=== PATIENT | female | born 1995 | race Hispanic/Latino ===

== ENCOUNTER 2017-05-05 02:21 | Inpatient (IN) | payer OTHER, MEDICAID ==
[~2017-05-05] VITALS: Ht 165.1 cm; Wt 108.9 kg
[2017-05-05] MEDS ORDERED: LACTATED RINGERS 1000ML 1,000 ML IV PRN (02:55)
[2017-05-05 03:01] LABS: APPEARANCE,URINE Cloudy (CLEAR); BILIRUBIN,URINE Negative (NEGATIVE); COLOR,URINE Yellow (YELLOW); GLUCOSE, URINE (UA) Negative (NEGATIVE); KETONES,URINE Negative (NEGATIVE); LEUKOCYTE ESTERASE ,URINE Negative (NEGATIVE); NITRATE,URINE Negative (NEGATIVE); OCCULT BLOOD,URINE Small (NEGATIVE); PROTEIN,URINE POS 2+ (NEGATIVE)
[2017-05-05] MEDS ORDERED: OXYTOCIN 10 USP UNITS/ML 20 UNIT in LACTATED RINGERS 1000ML 1,000 ML IV SCH (03:15)
[2017-05-05 03:16] LABS: BACTERIA,URINE None Seen /HPF (None Seen); MUCUS,URINE Few LPF (None Seen); RBC,URINE 0-1 /HPF (0-1); SQUAMOUS EPITHELIAL CELL,UR Many /LPF (0-2); WBC,URINE 0-1 /HPF (0-1)
[2017-05-05] MEDS ORDERED: LACTATED RINGERS 1000ML 1,000 ML IV ONE ×2 (03:35→14:38)
[2017-05-05] MEDS ORDERED: OXYTOCIN 10 USP UNITS/ML ONE ×3 (03:35→16:18)
[2017-05-05 03:43] LABS: HEMATOCRIT 33.6 % (36-48); MEAN CORPUSCULAR HEMOGLOBIN 29.4 pg (27.0-33.0); MEAN CORPUSCULAR VOLUME 84.1 fL (79-99); NUCLEATED RED BLOOD CELLS 0.1 % (0.0-0.19); PLATELET COUNT (AUTO) 204 K/uL (130-400); RED BLOOD CELL COUNT(AUTO) 3.99 MIL/uL (4.00-5.50); RED CELL DISTRIBUTION WIDTH 14.3 % (11.0-15.5); WHITE BLOOD COUNT (AUTO) 9.2 K/uL (4.8-10.8)
[2017-05-05] MEDS ORDERED: BUTORPHANOL TARTRATE 2 MG/ML ONE (08:53)
[2017-05-05] MEDS ORDERED: BUTORPHANOL TARTRATE 2 MG/ML IVP SCH ×2 (09:00→13:45)
[2017-05-05] MEDS ORDERED: LIDOCAINE HCL 1% 20 ML VIAL ONE (14:44)
[2017-05-05] MEDS ORDERED: ACETAMINOPHEN 325 MG TAB PO PRN (15:15)
[2017-05-05] MEDS ORDERED: LANOLIN 30GM OINTMENT TP PRN (15:15)
[2017-05-05] MEDS ORDERED: MEASLES/MUMPS/RUBELLA VACCINE, LIVE 0.5 ML/VIAL SQ PRN (15:15)
[2017-05-05] MEDS ORDERED: WITCH HAZEL 1 PAD TP PRN (15:15)
[2017-05-05] MEDS ORDERED: DIPH,PERTUSS(ACELL),TET VAC/PF 0.5 ML VIAL IM PRN (15:15)
[2017-05-05 18:00] VITALS: BP 136/74
[2017-05-05 19:47] VITALS: BP 134/81
[2017-05-05] MEDS: DOCUSATE SODIUM 100 MG CAP PO SCH (22:09)
[2017-05-05] MEDS: BENZOCAINE/LANOLIN/ALOE VERA 60 ML AEROSOL TP PRN (22:10)
[2017-05-05] MEDS: IBUPROFEN 600 MG TABLET PO PRN (22:10)
[2017-05-05 23:31] VITALS: BP 109/49
[2017-05-06 03:18] VITALS: BP 116/54
[2017-05-06 06:58] LABS: HEMATOCRIT 28.7 % (36-48); MEAN CORPUSCULAR HEMOGLOBIN 28.9 pg (27.0-33.0); MEAN CORPUSCULAR HGB CONC 34.1 g/dL (32.0-36.0); MEAN CORPUSCULAR VOLUME 84.7 fL (79-99); PLATELET COUNT (AUTO) 176 K/uL (130-400); RED BLOOD CELL COUNT(AUTO) 3.39 MIL/uL (4.00-5.50); RED CELL DISTRIBUTION WIDTH 14.3 % (11.0-15.5); WHITE BLOOD COUNT (AUTO) 12.6 K/uL (4.8-10.8)
[2017-05-06 07:31] VITALS: BP 116/55
[2017-05-06] MEDS: BENZOCAINE/LANOLIN/ALOE VERA 60 ML AEROSOL TP PRN (08:38)
[2017-05-06] MEDS: DOCUSATE SODIUM 100 MG CAP PO SCH (08:38)
[2017-05-06] MEDS: IBUPROFEN 600 MG TABLET PO PRN (08:41)
[2017-05-06 10:08] LABS: HEPATITIS Bs ANTIGEN SCREEN P Negative (Negative)
[2017-05-06 11:33] VITALS: BP 113/67
[2017-05-06] MEDS ORDERED: MO6B PO (14:39)
== END 2017-05-06 15:40 | disposition home or self-care (01) | DRG 775 ==
LOC: EDH 02:21 → LDH 02:22 → OBSVTOIN 03:13 → WSH 17:49
PROVIDERS: ADMIT Obstetrics & Gynecology; ATTEND Obstetrics & Gynecology
PROC: 10E0XZZ Delivery of Products of Conception, External Approach (ICD-10-PCS; principal; 2017-05-05)
PROC: 0KQM0ZZ Repair Perineum Muscle, Open Approach (ICD-10-PCS; 2017-05-05)
DX: O70.1 Second degree perineal laceration during delivery (principal); Z37.0 Single live birth; Z28.21 Immunization not carried out because of patient refusal; Z3A.37 37 weeks gestation of pregnancy
CPT/HCPCS: 36415; 81001; 82120; 85027; 86592; 86850; 86900; 86901; 87340; J0595; J2590; J7120

== ENCOUNTER 2018-08-26 13:26 | Observation (INO) | payer MEDICAID, OTHER ==
[~2018-08-26 13:26] MED LIST: MO6B PO
[2018-08-26 14:19] LABS: APPEARANCE,URINE Clear (CLEAR); BILIRUBIN,URINE Negative (NEGATIVE); COLOR,URINE Yellow (YELLOW); GLUCOSE, URINE (UA) Negative (NEGATIVE); KETONES,URINE Negative (NEGATIVE); LEUKOCYTE ESTERASE ,URINE Small (NEGATIVE); NITRATE,URINE Negative (NEGATIVE); OCCULT BLOOD,URINE Negative (NEGATIVE); PH,URINE 7.5 (5.0-8.0); PROTEIN,URINE Negative (NEGATIVE)
[2018-08-26 14:39] LABS: BACTERIA,URINE Rare /HPF (None Seen); MUCUS,URINE Rare LPF (None Seen); RBC,URINE 0-1 /HPF (0-1); SQUAMOUS EPITHELIAL CELL,UR Few /HPF (0-2); TRANSITIONAL EPI CELLS,URINE Rare /HPF (None Seen)
[2018-08-26] MEDS ORDERED: LACTATED RINGERS 1000ML IV SCH (15:15)
[2018-08-26] MEDS ORDERED: LACTATED RINGERS 1000ML 1,000 ML IV SCH (16:00)
== END 2018-08-26 16:24 | disposition home or self-care (01) ==
LOC: EDH 13:26 → LDH 13:27
PROVIDERS: ADMIT Obstetrics & Gynecology; ATTEND Obstetrics & Gynecology
DX: O26.892 Other specified pregnancy related conditions, second trimester (principal); R10.31 Right lower quadrant pain; R19.7 Diarrhea, unspecified; Z3A.23 23 weeks gestation of pregnancy
CPT/HCPCS: 81001; 96360; 99284; G0378 ×3; J7120

== ENCOUNTER 2024-06-29 14:01 | Emergency (ER) | payer MEDICAID, OTHER ==
[~2024-06-29] VITALS: Ht 165.1 cm; Wt 117.9 kg
[~2024-06-29 14:01] MED LIST changes: +IBUP-2088 PO; -MO6B PO
--- NOTE | 2024-06-29 14:15 | ERN ---
ED Note History of Present Illness Stated Complaint: ABDOMINAL PAIN Chief Complaint: Abdominal Pain Time Seen by MD: 14:09 Dictation: PATIENT IS A 28-YEAR-OLD FEMALE HERE WITH A INTERMITTENT PAIN TO THE RIGHT UPPER QUADRANT WITH NAUSEA AT RADIATES TO HER BACK ONSET TWO WEEKS PRIOR TO ARRIVAL. SHE STATES IT IS WORSE WITH FOOD AND WHEN SHE EATS. STATES SHE HAS BEEN TO [facility] ON THREE DIFFERENT OCCASIONS LABS WERE DONE, SHE WAS TOLD THAT IT WAS GASTRITIS ONLY SHE STATES THEY HAS NOT DONE ANY IMAGING OF HER GALLBLADDER. Allergies: Coded Allergies: No Known Drug Allergies (Unverified Allergy, Unknown, 05/05/17) Home Meds Active Scripts Nitrofurantoin/Nitrofuran Mac (Macrobid) 100 Mg Cap, 1 CAP PO BID for 7 Days, #14 CAP 0 Refills Prov:ADDISON SALINAS OFFICE EQUIPMENT TECHNICIAN 06/29/24 Reported Medications Ibuprofen (Motrin/Advil) 600 Mg Tab, 600 MG PO Q8H PRN for PAIN LEVEL 1 TO 5, #20 TAB 0 Refills 05/06/17 Past Medical History History: Not Applicable RN Note Reviewed/Agreed w/PFSH: Yes Review of System Dictation CONSTITUTIONAL: NEGATIVE EXCEPT FOR HPI HEAD/FACE: NEGATIVE EXCEPT FOR HPI EENT: NEGATIVE EXCEPT FOR HPI RESPIRATORY: NEGATIVE EXCEPT FOR HPI GASTROINTESTINAL/ABDOMINAL: NEGATIVE EXCEPT FOR HPI RIGHT UPPER QUADRANT PAIN WITH NAUSEA TWO WEEKS GENITOURINARY: NEGATIVE EXCEPT FOR HPI MUSCULOSKELETAL: NEGATIVE EXCEPT FOR HPI INTEGUMENTARY: NEGATIVE EXCEPT FOR HPI NEUROLOGICAL/PSYCH: NEGATIVE EXCEPT FOR HPI HEMATOLOGIC/LYMPHATIC: NEGATIVE EXCEPT FOR HPI ALL SYSTEMS NEGATIVE, EXCEPT NOTED ABOVE. 13 POINT REVIEW OF SYSTEMS ASSESSED AND ALL NEGATIVE EXCEPT FOR ABOVE. Initial Vital Sign VS Vital Signs Date Time Temp Pulse Resp B/P (MAP) Pulse Ox O2 Delivery O2 Flow Rate FiO2 06/29/24 14:07 97.9 92 18 161/86 100 Room Air 0 06/29/24 14:45 21 Physical Exam Dictation VITAL SIGNS REVIEWED GENERAL APPEARANCE: ALERT, ORIENTED X 3, MONITOR ACUTE DISTRESS, WELL DEVELOPED, NOURISHED. HEAD AND FACE: NON-TRAUMATIC. EYES: PERRL, PINK CONJUNCTIVAS, EYELID NO TRAUMA, ANTERIOR CHAMBER WITH ARCUS SENILIS. EARS: PINNAS INTACT AND NO SIGNS OF TRAUMA OR ERYTHEMA EAR CANALS CLEAR AND NO DISCHARGE TM NO ERYTHEMA NOSE: NO DISCHARGE, NO BLEEDING. OROPHARYNX: MOUTH NORMAL, TONGUE PINK, PHARYNX CLEAR,NO ERYTHEMA, TONSILS NO EXUDATES, NO ABSCESSES NOTED, MUCOUS ME MBRANE MOIST NECK: SUPPLE, NON-TENDER, NO THYROMEGALY, NO MASSES, NO JVD, NO BRUITS BREAST:DEFERRED CHEST:NO TENDERNESS, NO CREPITUS, NO PARADOXICAL MOVEMENT, NO RETRACTIONS LUNGS:CLEAR, WELL-VENTILATED, SYMMETRIC, NO RALES, NO WHEEZING, NO RHONCHI, NO STRIDOR, GOOD BREATH SOUNDS BILATERALLY HEART: REGULAR RATE, REGULAR RHYTHM, NO MURMUR, NO GALLOPS VASCULAR: NO PERIPHERAL EDEMA, ABDOMEN: SOFT, POSITIVE BOWEL SOUNDS, NONDISTENDED, NO GUARDING, NONTENDER, NO REBOUND, NO MASSES NO HEPATOMEGALY, NO SPLENOMEGALY, POSITIVE PRUETT'S SIGN, NO HERNIAS. RECTAL: DEFERRED GENITAL: DEFERRED NEUROLOGICAL: NORMAL SPEECH, MOTOR FUNCTION INTACT, SENSORY FUNCTION INTACT MUSCULOSKELETAL: NECK NONTENDER, FULL RANGE OF MOTION, BACK NONTENDER, FULL RANGE OF MOTION, EXTREMITIES: NONTENDER, FULL RANGE OF MOTION SKIN: COLOR PINK, DRY, NO TURGOR, NO RASH, NO LACERATIONS, NO ABRASIONS, NO CONTUSIONS. LYMPHATIC: DEFERRED Results (Laboratory/Radiology) Laboratory/Radiology Laboratory Tests Test 06/29/24 14:34 06/29/24 14:42 Urine Color LIGHT-YELLOW (YELLOW) Urine Appearance CLEAR (CLEAR) Urine pH 6.5 (5.0-8.0) Urine Specific Pratt 1.010 (1.001-1.031) Urine Protein NEGATIVE mg/dL (NEGATIVE) Urine Glucose (UA) NEGATIVE mg/dL (NEGATIVE) Urine Ketones NEGATIVE mg/dL (NEGATIVE) Urine Occult Blood LARGE (NEGATIVE) H Urine Nitrate NEGATIVE (NEGATIVE) Urine Bilirubin NEGATIVE mg/dL (NEGATIVE) Urine Urobilinogen 0.2 mg/dL (0.2-1.0) Urine Leukocyte Esterase 250 Марина/uL (NEGATIVE) H Urine RBC 11-25 /HPF (0-1) H Urine WBC 11-25 /HPF (0-1) H Urine Squamous Epithelial Cells FEW /HPF (0-2) Urine Bacteria RARE /HPF (None Seen) Urine HCG, Qualitative NEGATIVE (NEGATIVE) White Blood Count 8.6 K/uL (4.8-10.8) Red Blood Count 4.57 MIL/uL (4.00-5.50) Hemoglobin 13.4 g/dL (12.0-16.0) Hematocrit 38.6 % (36-48) Mean Corpuscular Volume 84.5 fL (79-99) Mean Corpuscular Hemoglobin 29.3 pg (27.0-33.0) Mean Corpuscular Hemoglobin Concent 34.7 g/dL (32.0-36.0) Red Cell Distribution Width 12.0 % (11.0-15.5) Platelet Count 284 K/uL (130-400) Mean Platelet Volume 10.2 fL (7.5-10.5) Immature Granulocyte % (Auto) 0.3 % (0-1) Neutrophils (%) (Auto) 65.8 % (40.0-77.0) Lymphocytes (%) (Auto) 27.4 % (21.0-51.0) Monocytes (%) (Auto) 5.4 % (3.0-13.0) Eosinophils (%) (Auto) 0.6 % (0.0-8.0) Basophils (%) (Auto) 0.5 % (0.0-5.0) Neutrophils # (Auto) 5.7 K/uL (1.8-7.7) Lymphocytes # (Auto) 2.4 K/uL (1.0-4.8) Monocytes # (Auto) 0.5 K/uL (0.1-1.0) Eosinophils # (Auto) 0.05 K/uL (0.00-0.70) Basophils # (Auto) 0.04 K/uL (0.00-0.20) Absolute Immature Granulocyte (auto 0.03 K/uL (0-1) Nucleated Red Blood Cells 0.0 % (0.0-0.19) Sodium Level 138 mmol/L (136-145) Potassium Level 3.6 mmol/L (3.5-5.1) Chloride Level 101 mmol/L (101-111) Carbon Dioxide Level 26 mmol/L (21-32) Blood Urea Nitrogen 10 mg/dL (7-18) Creatinine 0.8 mg/dL (0.5-1.0) Glomerular Filtration Rate Calc 102 mL/min (>90) Random Glucose 80 mg/dL (70-105) Total Calcium 9.0 mg/dL (8.5-10.1) Lipase 31 U/L (16-77) 1600/RIGHT UPPER QUADRANT ULTRASOUND NEGATIVE PATIENT STATES PAIN IMPROVED 1610/WISHED TO BE DISCHARGED HOME Labs Reviewed?: Yes ED Course ED Course Orders Procedure Category Date Status Time Cbc With Differential LAB 06/29/24 Complete 14:13 ,Urine Test LAB 06/29/24 Complete 14:13 Urinalysis Profile LAB 06/29/24 Complete 14:13 Us Abdominal Ruq\Ltd US 06/29/24 Resulted 14:13 0.9%Nacl 1000ml (Ns PHA 06/29/24 Complete 1000ml) 14:30 Ketorolac PHA 06/29/24 Complete Tromethamine 30mg/Ml 14:30 Ondansetron 4mg Inj PHA 06/29/24 Complete (Zofran 4mg Inj) 14:30 Lipase LAB 06/29/24 Complete 14:13 Basic Metabolic Panel LAB 06/29/24 Complete 14:13 Culture Urine WENDY 06/29/24 In Process 14:48 Ceftriaxone 1g Vial PHA 06/29/24 Complete (Rocephine 1g Inj) 16:00 Current Medications Medications (Trade) Dose Ordered Sig/Magaly Route PRN Reason Start Time Stop Time Status Last Admin Dose Admin Ceftriaxone Sodium (ROCEphine 1G INJ) 1 gm ONCE ONCE IVP 06/29/24 16:00 06/29/24 16:01 DC 06/29/24 15:46 Ketorolac Tromethamine (toRADol) 30 mg ONCE ONCE IVP 06/29/24 14:30 06/29/24 14:31 DC 06/29/24 15:42 Ondansetron HCl (zoFRAN 4MG INJ) 4 mg ONCE ONCE IVP 06/29/24 14:30 06/29/24 14:31 DC 06/29/24 15:41 Sodium Chloride 1,000 ml @ 0 mls/hr ONCE ONCE IV 06/29/24 14:30 06/29/24 14:31 DC 06/29/24 15:41 Vital Signs Date Time Temp Pulse Resp B/P (MAP) Pulse Ox O2 Delivery O2 Flow Rate FiO2 06/29/24 16:16 98.2 64 16 117/73 98 Room Air* 0 21 06/29/24 14:45 98.2 74 16 142/63 98 Room Air* 0 21 06/29/24 14:07 97.9 92 18 161/86 100 Room Air 0 Medical Decision Making MDM MEDICAL DISCHARGE MAKING BASED ON ABDOMINAL LABS TO INCLUDE URINE AND ULTRASOUND RIGHT UPPER QUADRANT DUE TO COLICKY RIGHT UPPER QUADRANT PAIN WORSE AFTER FOOD. ULTRASOUND NEGATIVE PATIENT ALSO STATES SHE HAD A CT AT [facility] AND WAS NEGATIVE FOR KIDNEY STONES. DISCHARGED HOME WITH A ACUTE GASTRITIS MACROBID FOR HER URINARY TRACT INFECTION GIVEN EXTENSIVE INFORMATION ON DIETARY GUIDELINES FOR BLAND DIET WATER FOR FLUIDS ONLY FOLLOW UP WITH DR. SEMAJ DUNN DX & DISP Disposition: Discharge Departure Impression: Primary Impression: Acute gastritis Additional Impression: Acute cystitis with hematuria Condition: Stable Scripts Nitrofurantoin/Nitrofuran Mac (Macrobid) 100 Mg Cap 1 CAP PO BID for 7 Days, #14 CAP 0 Refills Prov: ADDISON SALINAS OFFICE EQUIPMENT TECHNICIAN 06/29/24 Additional Instructions: FOLLOW-UP WITH PRIMARY CARE PROVIDER IN 1 TO 2 DAYS. TAKE MEDICATIONS DIRECTED HERE IN THE EMERGENCY ROOM. OKAY TO CONTINUE HOME MEDICATIONS UNLESS OTHERWISE DISCUSSED DURING YOUR VISIT IN THE EMERGENCY ROOM TODAY. RETURN TO YOUR NEAREST EMERGENCY ROOM IF SYMPTOMS WORSEN OR IF THERE IS NO IMPROVEMENT. CALL 911 IF YOU NEED IMMEDIATE ASSISTANCE. TAKE TYLENOL OR MOTRIN OV [id number] NEEDED AND IF NO CONTRAINDICATIONS ARE PRESENT. INCREASE ORAL HYDRATION. A WOUND CULTURE OR URINE CULTURE WAS ORDERED HERE IN THE EMERGENCY ROOM DEPARTMENT PLEASE FOLLOW-UP WITH PRIMARY CARE PROVIDER AND ADVISE THEM TO GET REPEAT PORTS FROM OUR FACILITY. IF YOU HAD ANY ROSALBA WRAP/SPLINTS THAT WERE APPLIED HERE, PLEASE DO NOT REMOVE THEM UNTIL YOU SEE YOUR PRIMARY CARE OR SPECIALTY. CONTINUE CARAFATE AND PANTOPRAZOLE FROM YOUR [facility] VISIT. TAKE MACROBID DIRECTED UNTIL GONE. FOLLOW A BLAND DIET WITH WATER FOR FLUIDS ONLY. NO CITRIC ACID FRUIT JUICE, NO SODA POP, NO ICE TEA, NO COFFEE NO SPICY FOODS UN TIL CLEARED BY GASTROENTEROLOGY, CALL FOR AN APPOINTMENT TOMORROW. Referrals: CRISTIAN VEGA Jr., MD (PCP) BETO DUNN MD Time of Disposition: 16:11 I have reviewed the case, and I agree with, Diagnosis and Plan I performed the substantive portion of the visit. I have reviewed and personally made and approve the management plan that is documented in the notes by myself or the JUAN DAVID. I acknowledge full responsibility for the patient's management plan. ADDISON SALINAS NP Jun 29, 2024 14:15 ESTEBAN ALEMAN MD Jun 29, 2024 19:19
[2024-06-29 14:46] LABS: APPEARANCE,URINE CLEAR (CLEAR); BILIRUBIN,URINE NEGATIVE (NEGATIVE); COLOR,URINE LIGHT-YELLOW (YELLOW); GLUCOSE, URINE (UA) NEGATIVE (NEGATIVE); KETONES,URINE NEGATIVE (NEGATIVE); LEUKOCYTE ESTERASE ,URINE 250 Leu/uL (NEGATIVE); NITRATE,URINE NEGATIVE (NEGATIVE); OCCULT BLOOD,URINE LARGE (NEGATIVE); PH,URINE 6.5 (5.0-8.0); PROTEIN,URINE NEGATIVE (NEGATIVE); UROBILINOGEN,URINE 0.2 mg/dL (0.2-1.0)
[2024-06-29 14:47] LABS: ADD UA MICROSCOPIC YES
[2024-06-29 14:49] LABS: HCG,QUALITATIVE URINE NEGATIVE (NEGATIVE)
[2024-06-29 14:53] LABS: BASOPHILS # (AUTO) 0.04 K/uL (0.00-0.20); BASOPHILS % (AUTO) 0.5 % (0.0-5.0); EOSINOPHILS # (AUTO) 0.05 K/uL (0.00-0.70); EOSINOPHILS % (AUTO) 0.6 % (0.0-8.0); HEMATOCRIT 38.6 % (36-48); IMMATURE GRANULOCYTE ABSOLUTE 0.03 K/uL (0-1); LYMPHOCYTES # (AUTO) 2.4 K/uL (1.0-4.8); LYMPHOCYTES % (AUTO) 27.4 % (21.0-51.0); MEAN CORPUSCULAR HEMOGLOBIN 29.3 pg (27.0-33.0); MEAN CORPUSCULAR HGB CONC 34.7 g/dL (32.0-36.0); MEAN CORPUSCULAR VOLUME 84.5 fL (79-99); MONOCYTES # (AUTO) 0.5 K/uL (0.1-1.0); MONOCYTES % (AUTO) 5.4 % (3.0-13.0); NEUTROPHILS # (AUTO) 5.7 K/uL (1.8-7.7); NEUTROPHILS % (AUTO) 65.8 % (40.0-77.0); PLATELET COUNT (AUTO) 284 K/uL (130-400); RED BLOOD CELL COUNT(AUTO) 4.57 MIL/uL (4.00-5.50); WHITE BLOOD COUNT (AUTO) 8.6 K/uL (4.8-10.8)
--- NOTE | 2024-06-29 14:58 | NUR ---
WENT IN ROOM TO CHECK ON PT NOT IN ROOM AT THIS TIME POSSIBLY IN US HOWEVER FAMILY NOT IN ROOM OR ER LOBBY
[2024-06-29 15:05] LABS: CREATININE 0.8 mg/dL (0.5-1.0); POTASSIUM 3.6 mmol/L (3.5-5.1)
[2024-06-29 15:11] LABS: BACTERIA,URINE RARE /HPF (None Seen); MUCUS,URINE RARE LPF (None Seen); SQUAMOUS EPITHELIAL CELL,UR FEW /HPF (0-2)
[2024-06-29] MEDS: ondanSETRON 4MG INJ IVP ONE (15:41)
[2024-06-29] MEDS: 0.9%NACL 1000ML 1,000 ML IV ONE (15:41)
[2024-06-29] MEDS: ketOROlac 30MG VIAL (30MG/ML) IVP ONE (15:42)
[2024-06-29] MEDS: cefTRIAXone 1G VIAL IVP ONE (15:46)
--- NOTE | 2024-06-29 16:01 | HMCIMG ---
Exam Type: US ABDOMINAL RUQ\E\LTD Clinical Information: Adominal Pain Comparison: None Findings: The liver shows normal echogenicity and is otherwise unremarkable. The liver measures less than 16 cm in length. Doppler evaluation shows patent portal and hepatic veins. The gallbladder shows no significant abnormalities. Specifically, no calculi are seen. The gallbladder wall thickness is 1 mm. No bile duct dilatation is noted. The common bile duct measures 4 mm. The right kidney measures 9.8 x 4.7 cm. The right kidney is normal in size and echogenicity. No hydronephrosis or renal calculi are seen. There are no renal masses. The pancreas is unremarkable. IMPRESSION: Normal right upper quadrant abdominal ultrasound.
[2024-06-29] MEDS ORDERED: MACR100 PO (16:13)
[2024-06-29 16:16] VITALS: BP 117/73; PULSE 64; RESP 16; TEMP 98.3; O2SAT 98
== END 2024-06-29 16:28 | disposition home or self-care (01) ==
LOC: EDH 14:01
DX: K29.00 Acute gastritis without bleeding (principal); N30.01 Acute cystitis with hematuria
CPT/HCPCS: 99285; 96374; 76705; 96375; 80048; 83690; 85025; 87086; 81001; 81025; 36415; J1885; J7030; J0696; J2405

== ENCOUNTER 2024-07-15 19:34 | Emergency (ER) | payer OTHER ==
[~2024-07-15] VITALS: Ht 165.1 cm; Wt 117.0 kg
[~2024-07-15 19:34] MED LIST changes: +MACR100 PO
[2024-07-15 20:13] LABS: APPEARANCE,URINE CLEAR (CLEAR); BILIRUBIN,URINE NEGATIVE (NEGATIVE); COLOR,URINE COLORLESS (YELLOW); GLUCOSE, URINE (UA) NEGATIVE (NEGATIVE); KETONES,URINE NEGATIVE (NEGATIVE); LEUKOCYTE ESTERASE ,URINE NEGATIVE Leu/uL (NEGATIVE); NITRATE,URINE NEGATIVE (NEGATIVE); OCCULT BLOOD,URINE NEGATIVE (NEGATIVE); PROTEIN,URINE NEGATIVE (NEGATIVE); UROBILINOGEN,URINE 0.2 mg/dL (0.2-1.0)
[2024-07-15 20:19] LABS: ADD UA MICROSCOPIC NO
[2024-07-15 20:24] VITALS: BP 125/74; PULSE 74; RESP 18; TEMP 98.2; O2SAT 98
[2024-07-15 20:41] LABS: BASOPHILS # (AUTO) 0.03 K/uL (0.00-0.20); BASOPHILS % (AUTO) 0.3 % (0.0-5.0); EOSINOPHILS # (AUTO) 0.15 K/uL (0.00-0.70); EOSINOPHILS % (AUTO) 1.7 % (0.0-8.0); HEMATOCRIT 38.6 % (36-48); IMMATURE GRANULOCYTE ABSOLUTE 0.01 K/uL (0-1); LYMPHOCYTES # (AUTO) 2.4 K/uL (1.0-4.8); LYMPHOCYTES % (AUTO) 27.7 % (21.0-51.0); MEAN CORPUSCULAR HEMOGLOBIN 29.4 pg (27.0-33.0); MEAN CORPUSCULAR HGB CONC 34.5 g/dL (32.0-36.0); MEAN CORPUSCULAR VOLUME 85.4 fL (79-99); MONOCYTES # (AUTO) 0.4 K/uL (0.1-1.0); MONOCYTES % (AUTO) 4.6 % (3.0-13.0); NEUTROPHILS # (AUTO) 5.7 K/uL (1.8-7.7); NEUTROPHILS % (AUTO) 65.6 % (40.0-77.0); PLATELET COUNT (AUTO) 242 K/uL (130-400); RED BLOOD CELL COUNT(AUTO) 4.52 MIL/uL (4.00-5.50); RED CELL DISTRIBUTION WIDTH 12.7 % (11.0-15.5); WHITE BLOOD COUNT (AUTO) 8.7 K/uL (4.8-10.8)
--- NOTE | 2024-07-15 20:44 | ERN ---
General Chief Complaint: Pelvic Pain Stated Complaint: C/O LOWER PELVIC PAIN Time Seen by MD: 19:36 Time Seen by Midlevel: 19:36 Source: patient History of Present Illness Initial Comments 28-year-old female who presents to the emergency department due to pelvic pain onset prior to arrival. She states pain initiated after having a bowel moveme nt. Patient denies any fever, dysuria, vomiting or further associated symptoms. Denies possibility of LMP 06/23/24. Denies significant past medical history. Allergies: Coded Allergies: No Known Drug Allergies (Unverified Allergy, Unknown, 05/05/17) Home Meds Active Scripts Nitrofurantoin/Nitrofuran Mac (Macrobid) 100 Mg Cap, 1 CAP PO BID for 7 Days, #14 CAP 0 Refills Prov:ADDISON SALINAS CARBONIZER TESTER 06/29/24 Reported Medications Ibuprofen (Motrin/Advil) 600 Mg Tab, 600 MG PO Q8H PRN for PAIN LEVEL 1 TO 5, #20 TAB 0 Refills 05/06/17 Past Medical History Past Medical History: No Pertinent History Past Surgical History: None Female( History) History: Not Applicable LMP: Jun 23, 2024 ROS Dictation Constitutional: Negative for fever,chills, and weight loss Eyes: Negative for injury, pain,redness, and discharge ENT: Negative for injury,pain or swelling Cardiovascular: Negative for chest pain, palpitations, and edema Respiratory: Negative for shortness of breath, cough, and wheezing, Abdomen/GI: Positive for pelvic pain Negative for abdominal pain, nausea, vomiting, diarrhea, and constipation Back: Negative for injury and pain : Negative for painful urination, bleeding or discharge MS/Extremity: Negative for injury and deformity Skin: Negative for rash, and discoloration Neuro: Negative for headache, weakness, numbness, tingling, and seizure Psych: Negative for suicide ideation, homicidal ideation, and hallucinations Physical Exam Physical Exam Dictation General: awake, alert, no acute distress Head/Face: Normocephalic, atraumatic Eyes: PERRL, EOMI, normal conjunctiva ENT: oral cavity clear, oral mucosa moist Neck: Supple, normal range of motion Cardiovascular: RRR, normal S1/S2 Respiratory: CTAB, no respiratory distress, no rales or wheezes Abdomen: Soft, mild suprapubic tenderness, non-distended, no guarding or rebound. Skin: Warm, dry, normal turgor, no rash MS/Extremity: Pulses equal, no cyanosis, neurovascular intact, FROM Neuro: COAx4, GCS 15, strength 5/5, CN 2-12 intact, normal cerebellar exam, normal gait Psych: Normal behavior, mood, and affect normal Results Laboratory and Microbiology Lab and Micro Result Laboratory Tests Test 07/15/24 19:40 07/15/24 20:33 Urine Color COLORLESS (YELLOW) Urine Appearance CLEAR (CLEAR) Urine pH 6.0 (5.0-8.0) Urine Specific Pilger 1.005 (1.001-1.031) Urine Protein NEGATIVE mg/dL (NEGATIVE) Urine Glucose (UA) NEGATIVE mg/dL (NEGATIVE) Urine Ketones NEGATIVE mg/dL (NEGATIVE) Urine Occult Blood NEGATIVE (NEGATIVE) Urine Nitrate NEGATIVE (NEGATIVE) Urine Bilirubin NEGATIVE mg/dL (NEGATIVE) Urine Urobilinogen 0.2 mg/dL (0.2-1.0) Urine Leukocyte Esterase NEGATIVE Марина/uL Urine HCG, Qualitative NEGATIVE (NEGATIVE) White Blood Count 8.7 K/uL (4.8-10.8) Red Blood Count 4.52 MIL/uL (4.00-5.50) Hemoglobin 13.3 g/dL (12.0-16.0) Hematocrit 38.6 % (36-48) Mean Corpuscular Volume 85.4 fL (79-99) Mean Corpuscular Hemoglobin 29.4 pg (27.0-33.0) Mean Corpuscular Hemoglobin Concent 34.5 g/dL (32.0-36.0) Red Cell Distribution Width 12.7 % (11.0-15.5) Platelet Count 242 K/uL (130-400) Mean Platelet Volume 11.1 fL (7.5-10.5) H Immature Granulocyte % (Auto) 0.1 % (0-1) Neutrophils (%) (Auto) 65.6 % (40.0-77.0) Lymphocytes (%) (Auto) 27.7 % (21.0-51.0) Monocytes (%) (Auto) 4.6 % (3.0-13.0) Eosinophils (%) (Auto) 1.7 % (0.0-8.0) Basophils (%) (Auto) 0.3 % (0.0-5.0) Neutrophils # (Auto) 5.7 K/uL (1.8-7.7) Lymphocytes # (Auto) 2.4 K/uL (1.0-4.8) Monocytes # (Auto) 0.4 K/uL (0.1-1.0) Eosinophils # (Auto) 0.15 K/uL (0.00-0.70) Basophils # (Auto) 0.03 K/uL (0.00-0.20) Absolute Immature Granulocyte (auto 0.01 K/uL (0-1) Nucleated Red Blood Cells 0.0 % (0.0-0.19) Sodium Level 138 mmol/L (136-145) Potassium Level 3.6 mmol/L (3.5-5.1) Chloride Level 103 mmol/L (101-111) Carbon Dioxide Level 27 mmol/L (21-32) Blood Urea Nitrogen 10 mg/dL (7-18) Creatinine 0.8 mg/dL (0.5-1.0) Glomerular Filtration Rate Calc 102 mL/min (>90) Random Glucose 93 mg/dL (70-105) Total Calcium 9.0 mg/dL (8.5-10.1) MDM MDM: Differential diagnosis: Menstrual pain, UTI, pelvic inflammatory disease, ovulation pain Rationale: Tests considered and ordered secondary to shared decision making include: Previous outside records reviewed: Old ER visits. Risk of complication and/or morbidity or mortality of patient management: None Medications-Per medication reconciliation Need for hospitalization: Patient does not meet criteria for hospitalization. Need for emergency major/minor surgery: No There are no social concerns with this patient. Prescription drug management Prescriptions will include symptomatic care Patient's prior external medical records from other ER visits were reviewed by me as indicated. Prior testing and results from previous visits were reviewed. Prior tests were taken into account with medical decision making and resource utilization, independent historian/historians were used to obtain complete medical history. I independently interpreted the test that were performed, results were reviewed by me and considered findings on radiology if ordered. Medical management and examination interpretation discussions were had by me with other qualified healthcare professionals as indicated for the patient's c are. ED Course Orders Procedure Category Date Status Time Urinalysis Profile LAB 07/15/24 Complete 19:47 ,Urine Test LAB 07/15/24 Complete 19:47 Cbc With Differential LAB 07/15/24 Complete 19:58 Basic Metabolic Panel LAB 07/15/24 Complete 19:58 Us Pelvic Non-Ob Comp US 07/15/24 Resulted 20:37 Acetaminophen 500mg PHA 07/15/24 Complete Tab (Tylenol 500mg T 21:00 Ct Abdomen/Pelvis CT 07/15/24 Resulted W/Contrast 21:28 Iohexol (Omnipaque) PHA 07/15/24 Complete 21:42 Current Medications Medications (Trade) Dose Ordered Sig/Magaly Route PRN Reason Start Time Stop Time Status Last Admin Dose Admin Acetaminophen (TYLenol 500MG TAB) 1,000 mg ONCE ONCE PO 07/15/24 21:00 07/15/24 21:01 DC 07/15/24 21:03 Iohexol (Omnipaque) 35,000 mg STK-MED ONCE IV 07/15/24 21:42 07/15/24 21:42 DC Vital Signs Date Time Temp Pulse Resp B/P (MAP) Pulse Ox O2 Delivery O2 Flow Rate FiO2 07/15/24 20:24 98.2 74 18 125/74 98 Room Air* 0 21 07/15/24 19:35 98.2 98 20 128/78 99 Room Air 10:38 p.m. I independently re-evaluated the patient reviewed all the data and examined the patient . Pelvic ultrasound was essentially with a normal limits CT scan of the abdomen and pelvis-no intra-abdominal or intrapelvic pathology. Recommend discharge to home to follow up with her primary care physician Problem List Problem Lists: (1) Ovulation pain (2) Pelvic pain (3) Tenesmus (rectal) DX & DISP Disposition: Discharge Departure Impression: Primary Impression: Pelvic pain Additional Impressions: Ovulation pain, Tenesmus (rectal) Condition: Stable Additional Instructions: Patient and the caregiver have been informed of all the diagnostic tests and the imaging conducted during the today's visit to the emergency room and has verbalized understanding of the results I have personally reviewed and interpreted all diagnostic exams performed here in the ER today as well as the vital signs documented by the nursing staff. The patient is now being discharged to home and should follow up with the primary care physician or the specialist as directed by the ER staff. Follow-up with primary care provider in 1 to 2 days. Take medications as directed here in the emergency room. Okay to continue home medications unless otherwise discussed during your visit in the emergency room today. Return to your nearest emergency room if symptoms worsen or if there is no improvement. Call 911 if you need immediate assistance. Take Tylenol or Motrin [id number] as needed and if no contraindications are present. Increase oral hydration. A wound culture or urine culture was ordered here in the emergency room department please follow-up with primary care provider and advise them to get repeat ports from our facility. If you had any Hayden wrap/splints that were applied here, please do not remove them until you see your primary care or specialty. Referrals: CRISTIAN VEGA Jr., MD (PCP) MONICA MUNROE Jul 15, 2024 20:44 LUCINDA ALLISON MD Jul 15, 2024 22:40
[2024-07-15 20:54] LABS: CREATININE 0.8 mg/dL (0.5-1.0); POTASSIUM 3.6 mmol/L (3.5-5.1)
[2024-07-15] MEDS: acetaMINOPHEN 500 MG TABLET PO ONE (21:03)
--- NOTE | 2024-07-15 21:35 | HMCIMG ---
Exam Type: US PELVIC NON-OB COMP Clinical Information: Pain Comparison: None Findings: The examination shows an anteverted uterus which is normal in size and echogenicity. It measures 8.4 x 3.9 x 6 cm. The endometrial lining is normal in thickness. It measures 8 mm. No intrauterine or ectopic seen. The ovaries are normal in size and echogenicity. The right ovary measures 2.7 x 1.9 x 2.1 cm. The left ovary measures 3.2 x 1.4 x 1.9 cm. Multiple left ovarian follicles, largest one 12 x 18 mm. Vascular Doppler flow exam and spectral analysis of waveforms analysis is unremarkable bilaterally. There is preserved vascularity to both ovaries on Doppler evaluation. Specifically, there is no evidence of ovarian torsion. No free fluid is noted throughout the cul-de-sac. There are no adnexal abnormalities. No other significant abnormalities are seen. No fluid collections or masses or free fluid are identified in the pelvis. Impression: NORMAL EXAM. No evidence of uterine pathology. No evidence of adnexal abnormalities or ovarian torsion. No intrauterine or ectopic seen. Left ovarian follicles visualized.
[2024-07-15] MEDS ORDERED: IOHEXOL 350 MG/ML 100ML INFUS..BTL IV ONE (21:42)
--- NOTE | 2024-07-15 22:11 | HMCIMG ---
CT ABDOMEN/PELVIS W/CONTRAST HISTORY: Abdominal pain COMPARISON: None TECHNIQUE: Multiple sequential axial images of the abdomen and pelvis were obtained from the dome of the diaphragm through symphysis pubis. Patient was given 100 cc of Omnipaque through intravenous route. Oral contrast was not given. FINDINGS: No pleural effusion is seen bilaterally. 4 mm left lower lobe pulmonary nodularity is seen. Degenerative changes of the thoracolumbar spine are present. The heart is not enlarged. Gallbladder is contracted. Liver measures 15 cm. The liver, spleen, adrenal glands and pancreas are unremarkable. There is no evidence of hydronephrosis bilaterally. No evidence of renal stone is seen. Fecal material is seen in the colon. There are normal size retroperitoneal and mesenteric lymph nodes. No ascites is seen. No CT evidence of acute appendicitis is seen. Clinical correlation is recommended. Pelvic sidewalls are symmetric bilaterally. The bladder is poorly distended. IMPRESSION: 1. No acute findings. CT was performed with one or more following dose reduction techniques: automated exposure control, adjustment of the mA and kv according to patient's size, or use of a iterative reconstruction technique.
== END 2024-07-15 23:42 | disposition home or self-care (01) ==
LOC: EDH 19:34
DX: R10.2 Pelvic and perineal pain (principal); N94.0 Mittelschmerz; R19.8 Other specified symptoms and signs involving the digestive system and abdomen
CPT/HCPCS: 36415; 74177; 76856; 80048; 81003; 81025; 85025; 99285; Q9967

== ENCOUNTER 2024-07-30 13:52 | Emergency (ER) | payer OTHER ==
[~2024-07-30] VITALS: Ht 165.1 cm; Wt 113.4 kg
[2024-07-30 13:53] VITALS: BP 156/80; PULSE 84; RESP 16; TEMP 98
[2024-07-30 14:20] LABS: BASOPHILS # (AUTO) 0.03 K/uL (0.00-0.20); BASOPHILS % (AUTO) 0.4 % (0.0-5.0); EOSINOPHILS # (AUTO) 0.15 K/uL (0.00-0.70); EOSINOPHILS % (AUTO) 2.2 % (0.0-8.0); HEMATOCRIT 38.3 % (36-48); IMMATURE GRANULOCYTE ABSOLUTE 0.02 K/uL (0-1); LYMPHOCYTES # (AUTO) 1.8 K/uL (1.0-4.8); LYMPHOCYTES % (AUTO) 26.8 % (21.0-51.0); MEAN CORPUSCULAR HEMOGLOBIN 29.4 pg (27.0-33.0); MEAN CORPUSCULAR HGB CONC 34.7 g/dL (32.0-36.0); MEAN CORPUSCULAR VOLUME 84.5 fL (79-99); MONOCYTES # (AUTO) 0.3 K/uL (0.1-1.0); MONOCYTES % (AUTO) 4.9 % (3.0-13.0); NEUTROPHILS # (AUTO) 4.4 K/uL (1.8-7.7); NEUTROPHILS % (AUTO) 65.4 % (40.0-77.0); PLATELET COUNT (AUTO) 243 K/uL (130-400); RED BLOOD CELL COUNT(AUTO) 4.53 MIL/uL (4.00-5.50); RED CELL DISTRIBUTION WIDTH 12.7 % (11.0-15.5); WHITE BLOOD COUNT (AUTO) 6.8 K/uL (4.8-10.8)
[2024-07-30 14:36] LABS: CREATININE 0.9 mg/dL (0.5-1.0); POTASSIUM 3.5 mmol/L (3.5-5.1)
[2024-07-30 14:52] LABS: B-TYPE NATRIURETIC PEPTIDE 12 pg/mL (0-100)
--- NOTE | 2024-07-30 15:12 | HMCIMG ---
Exam Type: CHEST 1VW Clinical Information: CHEST PAIN Comparison: None Findings: The lungs are clear of infiltrates. The heart is normal in size. The bony and soft tissue structures of the chest are unremarkable. Impression: Clear lungs.
--- NOTE | 2024-07-30 15:52 | ERN ---
General Chief Complaint: Chest Pain Stated Complaint: CHEST PAIN Time Seen by MD: 13:53 Source: patient History of Present Illness Initial Comments PATIENT IS A 28-YEAR-OLD FEMALE COMING IN WITH CHEST PRESSURE. PATIENT STATES THAT THIS HAS BEEN ONGOING FOR A WEEK. PREVIOUS TO THIS SHE HAS HAD SIMILAR EPISODES WAS DIAGNOSED WITH A HIATAL HERNIA AND GASTRITIS. PATIENT HAS BEEN TAKING HER PROTONIX ON AND OFF FOR THREE WEEKS. aLONG WITH THIS PATIENT STATES THAT SHE TAKES SUCRALFATE FOR DISCOMFORT BUT TODAY IT WAS NOT WORKING. 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 HEAD/FACE: No signs of trauma. EENT: No eye pain, no blurred vision, no tearing, no double vision, no ear pain, no ear discharge, no nose pain, no nasal congestion, no throat pain, no throat swelling, no mouth pain. RESPIRATORY: No cough, no orthopnea, no SOB, no stridor, no wheezing. CARDIOVASCULAR: No chest pain, no edema, no palpitations, no syncope. GASTROINTESTINAL/ABDOMINAL: No abdominal pain, no constipation, no diarrhea, no nausea, no vomiting. GENITOURINARY: No abnormal discharge, no dysuria, no frequent urination, no hematuria. No complaints of pain in the genitals. MUSCULOSKELETAL: No back pain, no gout, no joint pain, no joint swelling, no muscle pain, no muscle stiffness, no neck pain. INTEGUMENTARY: No change in color, no change in hair/nails, no dryness, no lesion, no lumps, no rash. NEUROLOGICAL/PSYCH: No anxiety, not depressed, no emotional problem, no h eadache, no numbness, no pre-existing deficit, no history of seizures, no tremors, no weakness. HEMATOLOGIC/LYMPHATIC: Not anemic, no history of blood clots, no apparent bleeding, no bruising, glands not swollen. All Systems Negative, Except as Noted. Physical Exam Physical Exam Dictation VITAL SIGNS: Reviewed. GENERAL APPEARANCE: Alert, oriented x3, no acute distress, obese. HEAD AND FACE: Non-traumatic. EYES: PERRL, pink conjunctivas, eyelid no trauma, anterior chamber clear. EARS: Pinnas intact and no signs of trauma or erythema. Ear canals clear and no discharge. TMs no erythema. NOSE: No discharge, no bleeding. OROPHARYNX: Mouth normal, teeth no caries, tongue pink. Pharynx clear, no erythema. Tonsils no exudates, no abscesses noted. Mucous membrane moist. NECK: Supple, non-tender, no thyromegaly, no masses, no JVD, no bruits. BREAST: Deferred. CHEST: No tenderness, no crepitus, no paradoxical movement, no retractions. LUNGS: Clear, well-ventilated, symmetric, no rales, no wheezing, no rhonchi, no stridor, good breath sounds bilaterally. HEART: Regular rate, regular rhythm, no murmur, no gallops. VASCULAR: No peripheral edema. ABDOMEN: Soft, positive bowel sounds, nondistended, no guarding, nontender, no rebound, no masses no hepatomegaly, no splenomegaly, no Devries's sign, no hernias. RECTAL: Deferred. GENITAL: Deferred. NEUROLOGICAL: Normal speech, gross motor function intact, gross sensory function intact. MUSCULOSKELETAL: Neck nontender, full range of motion, back nontender, full range of motion. EXTREMITIES: Nontender, full range of motion. SKIN: Color pink, dry, no turgor, no rash, no lacerations, no abrasions, no contusions. LYMPHATICS: Deferred. Results Laboratory and Microbiology Lab and Micro Result Laboratory Tests Test 07/30/24 14:06 07/30/24 15:50 White Blood Count 6.8 K/uL (4.8-10.8) Red Blood Count 4.53 MIL/uL (4.00-5.50) Hemoglobin 13.3 g/dL (12.0-16.0) Hematocrit 38.3 % (36-48) Mean Corpuscular Volume 84.5 fL (79-99) Mean Corpuscular Hemoglobin 29.4 pg (27.0-33.0) Mean Corpuscular Hemoglobin Concent 34.7 g/dL (32.0-36.0) Red Cell Distribution Width 12.7 % (11.0-15.5) Platelet Count 243 K/uL (130-400) Mean Platelet Volume 10.9 fL (7.5-10.5) H Immature Granulocyte % (Auto) 0.3 % (0-1) Neutrophils (%) (Auto) 65.4 % (40.0-77.0) Lymphocytes (%) (Auto) 26.8 % (21.0-51.0) Monocytes (%) (Auto) 4.9 % (3.0-13.0) Eosinophils (%) (Auto) 2.2 % (0.0-8.0) Basophils (%) (Auto) 0.4 % (0.0-5.0) Neutrophils # (Auto) 4.4 K/uL (1.8-7.7) Lymphocytes # (Auto) 1.8 K/uL (1.0-4.8) Monocytes # (Auto) 0.3 K/uL (0.1-1.0) Eosinophils # (Auto) 0.15 K/uL (0.00-0.70) Basophils # (Auto) 0.03 K/uL (0.00-0.20) Absolute Immature Granulocyte (auto 0.02 K/uL (0-1) Nucleated Red Blood Cells 0.0 % (0.0-0.19) Sodium Level 140 mmol/L (136-145) Potassium Level 3.5 mmol/L (3.5-5.1) Chloride Level 105 mmol/L (101-111) Carbon Dioxide Level 28 mmol/L (21-32) Blood Urea Nitrogen 9 mg/dL (7-18) Creatinine 0.9 mg/dL (0.5-1.0) Glomerular Filtration Rate Calc 88 mL/min (>90) Random Glucose 93 mg/dL (70-105) Total Calcium 8.7 mg/dL (8.5-10.1) Total Creatine Kinase 66 U/L (21-232) Troponin I High Sensitivity < 4 ng/L (4-50) L < 4 ng/L (4-50) L B-Type Natriuretic Peptide 12 pg/mL (0-100) Labs Reviewed?: Yes EKG/XRAY/US/CT/MRI EKG Comment 09/2024 time 1:56 p.m. Ventricular rate 73 Sinus rhythm [place] [address] wave elevation or depression X-RAY Comment [facility] [address] [place] [address] IMAGING REPORT Signed PATIENT: DEDRICK STONE MR#: [id number] : 1995 SEX: F AGE: 28 LOCATION: [facility] ORDER [id number] STATUS: [facility] ER REPORT#: [id number] SERVICE 56 REASON: CHEST PAIN ORDERING PHYSICIAN: VALERIANO MCCURDY MD PROCEDURE: CXR1VW - CHEST 1VW Exam Type: CHEST 1VW Clinical Information: CHEST PAIN Comparison: None Findings: The lungs are clear of infiltrates. The heart is normal in size. The bony and soft tissue structures of the chest are unremarkable. Impression: Clear lungs. DICTATED BY: CHADWICK MARQUEZ MD DATE: 07/30/24 150 ELECTRONICALLY SIGNED BY: CHADWICK MARQUEZ MD DATE: 07/30/24 1512 [facility] MDM: Differential diagnosis:gastritis, gerd, hiatal hernia Rationale: Tests considered and ordered secondary to shared decision making include: Previous outside records reviewed: Old ER visits. Risk of complication and/or morbidity or mortality of patient management: None Medications-Per medication reconciliation Patient is a 28-year-old female coming in to be evaluated for epigastric discomfort. Patient states he has a history of hiatal as well as gastritis this was he has been in his here caused her symptoms significantly. Patient will be discharged in stable condition I advised her appropriate follow up with PCP in 1-2 days. Cardiac workup negative for acute findings. Cardiac enzymes x2 within normal limits. ED Course Orders Procedure Category Date Status Time Vital Signs Per CPOE 07/30/24 Transmitted Routine 13:57 B-Type Natriuretic LAB 07/30/24 Complete Peptide 13:57 Chest 1vw RAD 07/30/24 Resulted 13:57 12 Lead Ekg Tracing- EKG 07/30/24 Logged Technical 13:57 Oxygen By Nc/Pulse Ox CPOE 07/30/24 Transmitted 13:57 Maintain Iv CPOE 07/30/24 Transmitted 13:57 Iv Insertion CPOE 07/30/24 Transmitted 13:57 Cardiac Monitoring CPOE 07/30/24 Transmitted 13:57 Pulse Oximetry With CPOE 07/30/24 Transmitted Vs And Prn 13:57 Cbc With Differential LAB 07/30/24 Complete 13:57 Activity: Br W/Brp CPOE 07/30/24 Transmitted With Assist 13:57 Creatine Kinase, Total LAB 07/30/24 Complete 13:57 Troponin I High LAB 07/30/24 Complete Sensitivity 13:57 Urinalysis Profile LAB 07/30/24 Logged 13:57 Basic Metabolic Panel LAB 07/30/24 Complete 13:57 Troponin I High LAB 07/30/24 Complete Sensitivity 15:37 Lidocaine Hcl 2% PHA 07/30/24 Complete Viscous (Lidocaine Hcl 16:00 Mag/Alum/Simeth 30ml PHA 07/30/24 Complete (Maalox Plus 30ml) 16:00 Current Medications Medications (Trade) Dose Ordered Sig/Magaly Route PRN Reason Start Time Stop Time Status Last Admin Dose Admin Al Hydroxide/Mg Hydroxide (MAALox PLUS 30ML) 30 ml ONCE ONCE PO 07/30/24 16:00 07/30/24 16:01 DC 07/30/24 16:40 Lidocaine HCl (Lidocaine HCl 2% Viscous) 10 ml ONCE ONCE PO 07/30/24 16:00 07/30/24 16:01 DC 07/30/24 16:41 Vital Signs Date Time Temp Pulse Resp B/P (MAP) Pulse Ox O2 Delivery O2 Flow Rate FiO2 07/30/24 13:53 98.1 84 16 156/80 99 0 DX & DISP Disposition: Discharge Departure Impression: Primary Impression: Acute gastritis Condition: Stable Additional Instructions: You have been reviewed in the emergency department at [facility] [place] after presenting with chest pain. After considering your history, your risk factors, your EKG and your blood test troponins, have been found to be at very low risk less than (1 in 100) of having a major adverse cardiac event (like heart attack) in the near future. In the " low risk" group, the risks of doing further tests and treatment as the inpatient outweighs the benefits. In many patients in the low risk group for the test of any sort or unnecessary, however he should discuss this further with his general practitioner who will understand the medical and personal backgrounds better. Because we have never declared you" no risk" we would suggest. 1 returning for medical review if you have further episodes of chest pain/arm p ain or other concerning symptoms like dizziness, collapse, palpitations or shortness of breath. 2. Following up with your local doctor who will consider the need for further testing and will also ensure that any modifiable risk factors you may have for heart disease are optimally managed. Patient will be discharged in stable condition at the moment discharge patient states , no chest pain Referrals: BERNARDO DANG (PCP) Time of Disposition: 16:46 VALERIANO MCCURDY MD July 30, 2024 15:52
--- NOTE | 2024-07-30 16:23 | NUR ---
PT PLACED IN [facility]
[2024-07-30] MEDS: MAG/ALUM/SIMETH 30 ML UDCUP PO ONE (16:40)
[2024-07-30] MEDS: LIDOCAINE HCL 2% VISCOUS 15 ML UDCUP PO ONE (16:41)
--- NOTE | 2024-07-30 16:45 | NUR ---
PT STATES " I HAVENT BEEN ABLE TO PRODUCE URINE", ERMD MADE AWARE, ORDERS DC
--- NOTE | 2024-07-30 18:55 | EKG ---
[facility] Test Date: 2024-07-30 Test Time: 13:56:15 Pat Name: DEDRICK STONE Department: ED Room: Gender: F [employer]: [id number] : 1995 Requested By: VALERIANO MCCURDY Order Number: [id number] Reading MD: Vadim Charles Measurements Intervals [place] Rate: 73 P: 14 UT: 154 QRS: 37 QRSD: 103 T: 50 QT: 388 QTc: 428 Interpretive Statements Sinus rhythm No previous ECG available for comparison Electronically Signed On 07-30-2024 21:36:55 CDT by Vadim Charles Please click the below link to view image of tracing.
== END 2024-07-30 17:16 | disposition home or self-care (01) ==
LOC: EDH 13:52
DX: K29.00 Acute gastritis without bleeding (principal); Z79.899 Other long term (current) drug therapy
CPT/HCPCS: 36415; 71045; 80048; 82550; 83880; 84484; 85025; 93005; 99285